=== PATIENT | male | born 1955 | race Caucasian/White ===

== ENCOUNTER → 2016-06-17 | Outpatient (CLI) | payer BC ==
[~2016-06-17] MED LIST: OXYC-57 PO
--- NOTE | 2016-06-17 10:55 | DIAGNOSTIC IMAGING REPORT ---
RIGHT SHOULDER MRI HISTORY: Right shoulder pain. TECHNIQUE: Multiplanar multisequence MRI of the right shoulder was performed without contrast. COMPARISON STUDY: Right shoulder 04/29/2016. FINDINGS: AC joint: Mild AC joint arthropathy demonstrated by joint space narrowing and subchondral marrow edema. Rotator cuff: The teres minor and infraspinatus tendons are intact. Some increased signal within the distal subscapularis tendon consistent with a mild tendinopathy/partial undersurface tear. Supraspinatus tendon also appears relatively intact.. Labrum: Slight abnormal configuration and increased T2 signal within the superior labrum. This may represent degeneration versus a small SLAP tear. Biceps tendon: Mild thickening and increased signal within the proximal long head of the biceps and in consistent with a mild tendinopathy. Bones: No acute fracture or dislocation of the glenohumeral joint. Cartilage: Intact Miscellaneous: No significant joint effusion. IMPRESSION: 1. Increased signal within the distal subscapularis tendon consistent with mild tendinopathy/partial undersurface tear. No evidence for full-thickness rotator cuff tear. 2. Mild tendinopathy involving the proximal long head of the biceps tendon. 3. Mild AC joint arthropathy with associated marrow edema at the distal clavicle and acromion. No fractures. 4. Abnormal signal and configuration within the superior labrum which may be due to mild degeneration versus a small SLAP tear. Electronically signed by: Norbert Riley M.D. 06/17/2016 10:54 AM Dictated Date/Time: 06/17/2016 10:41 AM
== END | disposition home or self-care (01) ==
LOC: C.MRI 09:39
PROVIDERS: ATTEND Family Medicine
DX: M25.511 Pain in right shoulder (principal); S46.819A Strain of other muscles, fascia and tendons at shoulder and upper arm level, unspecified arm, initial encounter; X58.XXXA Exposure to other specified factors, initial encounter

== ENCOUNTER → 2016-07-31 | Day surgery (SDC) | payer BC ==
[2016-07-11 13:07] VITALS: Ht 175.3 cm; Wt 91.8 kg
[~2016-07-31] VITALS: Ht 175.3 cm; Wt 91.8 kg
[~2016-07-31] MED LIST changes: +ATROPINE SULFATE 0.1 MG/ML 5ML SYR IV PRN; +BUPIVACAINE 0.5 % 5 MG/1 ML MPF 30ML VIAL ONE; +CLINDAMYCIN PHOS 150 MG/ML 2 ML VIAL IV SCH; +DEXAMETHASONE SOD INJ 4 MG/ML VIAL IV PRN; +DEXAMETHASONE SOD INJ 4 MG/ML VIAL ONE; +EpHEDrine SULFATE 50MG/5ML SYR ONE; +EpHEDrine SULFATE INJ 50 MG/ML AMP IV PRN; +FENTANYL CITRATE INJ 50 MCG/1 ML 2 ML VIAL IV PRN; +FENTANYL CITRATE INJ 50 MCG/1 ML 2 ML VIAL ONE; +GLYCOPYRROLATE INJ 0.2 MG/ML VIAL ONE; +KETOROLAC TROMETHAMINE 30 MG/ML VIAL IV. PRN; +LABETALOL HCL IV 5 MG/ML 20ML IV PRN; +LACTATED RINGER'S 1000ML 1,000 ML IV SCH; +LIDOCAINE HCL 1% MPF 2 ML VIAL ONE; +LIDOCAINE HCL 2% 2 ML VIAL (20MG/ML) ONE; +LIDOCAINE/EPINEPHRINE 1% INJ 50 ML VIAL ONE; +METOCLOPRAMIDE HCL INJ 5 MG/ML 2 ML VIAL IV PRN; +MIDAZOLAM HCL 1 MG/ML 2ML VIAL ONE; +MoRPHine SULFATE 10 MG/ML CARP/VIAL IV PRN; +MoRPHine SULFATE 2 MG/ML CARP IV PRN; +MoRPHine SULFATE 4 MG/ML 1 ML CARP\\VIAL IV PRN; +NEOSTIGMINE METHYLSULFATE 5 MG/5 ML SYR ONE; +ONDANSETRON INJ 2 MG/ML 2 ML VIAL IV PRN; +ONDANSETRON INJ 2 MG/ML 2 ML VIAL ONE; +OXYCODONE/ACETAMINOPHEN 5-325 TAB PO PRN; +PHENYLEPHRINE 100MCG/ML 5ML SYR IV PRN; +PROPOFOL IV EMULSION 10 MG/ML 20 ML VIAL IV ONE; +ROCURONIUM BROMIDE 10 MG/ML 5 ML VIAL ONE; +ROPIVACAINE 0.5% 5 MG/ML 30 ML VIAL ONE; +SODIUM CHLORIDE 0.9% 1000ML 1,000 ML IV SCH
--- NOTE | 2016-07-31 06:49 | History & Physical Bridge Note ---
H&P Re-Evaluation Bridge Note: I have examined the patient, reviewed the History & Physical and in the interval since the performance of the History & Physical I have noted the following changes of clinical significance: No changes noted
--- NOTE | 2016-07-31 09:49 | [facility] Post Operative Brief Note ---
Immediate Operative Summary Operative Date Jul 31, 2016. Pre-Operative Diagnosis Right Shoulder Impingement Post-Operative Diagnosis Same Procedure(s) Performed Right Shoulder Arthroscopy, Subacromial Decompression Surgeon Dr Calvert Clock And Watch Assembler Surgeon(s) Migdalia Pope PA-C Estimated Blood Loss Trace Findings partial supraspinatus tear, bursitis Specimens None Anesthesia LMA, block Complication(s) None Disposition Recovery Room / PACU
--- NOTE | 2016-07-31 09:59 | Discharge Instructions-SurgCtr ---
Discharge Instructions Date of Service Jul 31, 2016. Visit Reason for Visit: Right Shoulder Impingement Discharge Discharge Diagnosis / Problem: right shoulder impingement Discharge Goals Goal(s): Decrease discomfort, Improve function, Increase independence Medications Stopped Medications Name(s): advil stopped last thursday07/23/16 Activity Recommendations Activity Limitations: per Instructions/Follow-up section Anesthesia . Post Anesthesia Instructions: If you have had General Anesthesia or IV Sedation: * Do not drive today. * Resume driving when surgeon permits. * Do not make important decisions or sign legal documents today. * Call surgeon for: 1. Temperature elevations greater than 101 degrees F. 2. Uncontrollable pain. 3. Excessive bleeding. 4. Persistent nausea and vomiting. 5. Medication intolerance (nausea, vomiting or rash). * For nausea and vomiting use only clear liquids such as: tea, soda, bouillon until nausea subsides, then gradually increase diet as tolerated. * If you have any concerns or questions, call your surgeon's office. If physician is unavailable and it is an emergency, call 911 or go to the nearest emergency room. . Instructions / Follow-Up Instructions / Follow-Up The following are instructions to follow after "Shoulder Surgery" including, Acromioplasty, Rotator Cuff Repair and Instability Surgery ACTIVITY RECOMMENDATIONS: * Minimize activity after surgery. * No excessive walking, jogging, sports or laboring. * Return to activity is individualized depending on the patient and type of surgery. * Driving is not permitted until at least your first post operative visit. Please ask your doctor when it is safe to resume driving. * Expect increased discomfort with increased activity. Continue to ice the shoulder as needed. SCHOOL/WORK RECOMMENDATIONS: * You may return to sedentary work or school when you are feeling more comfortable. This is usually 3-7 days after surgery. MEDICATIONS: * You will have a prescription for pain medication and an anti-inflammatory medication after surgery. * Use the pain medication for severe pain and the anti-inflammatory for less severe pain. Once the pain medication has run out, try to use the anti-inflammatory medication. If this is not effective, contact the office for assistance. * The pain medication may cause nausea, constipation and drowsiness. You should see how they affect you before driving or similar activity. * The anti-inflammatory medication may cause stomach upset and bleeding. If this occurs let your doctor know immediately . * Take a stool softener like Colace or a laxative like Senokot to prevent constipation. DIET: * Resume previous diet. SPECIAL CARE: ICE: You have the option of an ice cooler, gel packs or ice bags. * If you have an ice cooler, refer to the instructions for that device. The ice cooler may be used continuously. * If you do not have an ice cooler, you will need to use ice bags or gel packs. Do not apply ice directly to the skin. Use a thin dressing or josephine shirt between the skin and ice bag. Apply ice for 20-30 minutes and repeat every 2-4 hours. This is especially important for the first 7-10 days after surgery. Once the pain improves, use ice as needed. ELEVATION: * You may be more comfortable sleeping in an upright position. Use the sling to elevate your arm. DRESSING: * Your dressing will be changed at your first therapy appointment approximately 4-5 days after surgery. Band-aids, tape strips or gauze may be applied. You may then change your dressing daily. * Reapply dressing followed by the EBIce cooling pad (if chosen) and then the sling. * Always wash your hands prior to touching the incision area. * Once the stitches are removed, you may leave the wound open to air or cover with gauze. * Expect some bloody drainage for the first few days after surgery. * Leave the tape strips, if present, in place for 5-7 days. * Band-aids and gauze may be changed daily. * There may be a gauze pad in your armpit area. This can be changed daily or replaced by a dry washcloth. SLING/BRACE: * You will need to use a sling or brace after surgery. The length of time the sling is used is dependent upon the type of surgery performed. * Arthroscopic Acromioplasty requires use of the sling for 2-4 weeks for comfort. * Labral procedures and Rotator Cuff Repairs require use of the sling for a longer period of time. Please check with your doctor prior to discontinuing the sling. BATHING: * You may shower or sponge-bathe immediately after surgery. The post operative shoulder dressing is mostly water-tight. You may shower right over this dressing, but be reasonably careful not to get the gauze or incision wet. * Once the dressing has been changed on the fourth or fifth day after surgery, you may shower and get the incision wet. * Wash with regular soap and water. * Do not bathe (submerge the incision), soak, swim or use a hot tub until the incision is completely healed over with normal skin and the doctor has given the OK to proceed. * There is no need to apply any ointments, powders or salves to your incision. * Do not apply alcohol or hydrogen peroxide directly to the incision. * Diluted peroxide (50:50 mixture with sterile saline) may be used to clean dried blood from around the incision area. THERAPY: * You will begin therapy four or five days after surgery. * Organized therapy with the therapist is important for the first 2-4 months after surgery depending on the type of procedure. During that time you will attend therapy 1-3 times per week. * You will also need to do daily exercises for range of motion and strength as instructed. * Patients who have a Capsular Shift Procedure will need to abide by temporary range of motion limitations. * Patients having Rotator Cuff Surgery are not allowed to actively lift their arms until 4-6 weeks after surgery. * Please check with your doctor regarding appropriate motion restrictions. FOLLOW UP VISIT: * If not already scheduled, please call the office at to schedule a follow-up appointment for 10 days after surgery and monthly thereafter. Diet Recommendations Home Diet: no limitations, resume previous diet Procedures Procedures Performed: Right Shoulder Arthroscopy, Subacromial Decompression Pending Studies Studies pending at discharge: no Medical Emergencies . Who to Call and When: Medical Emergencies: If at any time you feel your situation is an emergency, please call 911 immediately. . Non-Emergent Contact Non-Emergency issues call your: Surgeon Call Non-Emergent contact if: temperature is above 101.5, your pain is worsening, your pain is concerning you, wound has increased drainage . . "Provider Documentation" section prepared by Brianna Ellis.
--- NOTE | 2016-07-31 10:04 | [facility] Operative Report ---
Operative Report Operative Date Jul 31, 2016. Pre-Operative Diagnosis Right Shoulder Impingement Post-Operative Diagnosis Right shoulder impingment Procedure(s) Performed Right shoulder arthroscopy, subacromial decompression, debridement Surgeon Dr Calvert Curtain Mender Surgeon(s) Migdalia Pope PA-C Estimated Blood Loss Trace Findings impingement, partial RTC tear Specimens None Anesthesia LMA, block Complication(s) None Disposition Recovery Room / PACU Indications Patient is a 60 year old male who presented to our office with complaints of worsening right shoulder pain, failed conservative treatment. X-rays/MRI obtained, found to have evidence of impingement syndrome and partial thickness RTC tear. Surgical intervention discussed. Risks/complications discussed, informed consent obtained. Description of Procedure Patient was taken to the operating room, given IV Clindamycin for surgical prophylaxis. Time out performed, prepped and draped in routine sterile fashion. I was present the entire case, please see Dr. Calvert's operative report for further detail. Patient was awakened and taken to the recovery room in stable condition. I attest to the content of the Intraoperative Record and any orders documented therein. Any exceptions are noted below.
[2016-07-31 10:59] VITALS: TEMP 36.7
--- NOTE | 2016-07-31 11:09 | Anesthesia Progress Nt - [facility] ---
Anesthesia Post Op Note Date & Time Jul 31, 2016 at 11:05 Vital Signs Pain Intensity: 0 Vital Signs Past 12 Hours Date Time Temp Pulse Resp B/P Pulse Ox O2 Delivery O2 Flow Rate FiO2 07/31/16 10:51 69 10 96 07/31/16 10:51 68 10 07/31/16 10:50 128/66 07/31/16 10:47 68 12 07/31/16 10:47 66 12 90 07/31/16 10:45 126/68 07/31/16 10:42 70 20 91 07/31/16 10:42 72 20 07/31/16 10:40 126/71 07/31/16 10:37 69 14 95 07/31/16 10:37 69 14 07/31/16 10:36 65 9 07/31/16 10:36 66 9 95 07/31/16 10:35 129/69 07/31/16 10:35 36.4 67 13 129/69 94 Room Air 07/31/16 10:31 65 12 93 07/31/16 10:31 65 12 07/31/16 10:30 132/77 07/31/16 10:26 72 16 07/31/16 10:26 72 16 96 07/31/16 10:25 124/76 07/31/16 10:21 61 14 98 07/31/16 10:21 62 14 07/31/16 10:20 131/68 07/31/16 10:16 66 17 07/31/16 10:16 66 17 94 07/31/16 10:15 123/69 07/31/16 10:11 57 18 98 07/31/16 10:11 58 18 07/31/16 10:10 119/69 07/31/16 10:06 65 19 07/31/16 10:06 65 19 100 07/31/16 10:05 131/67 07/31/16 10:01 52 9 07/31/16 10:01 52 9 100 07/31/16 10:00 126/70 07/31/16 09:58 36.2 60 16 127/70 98 Room Air 07/31/16 09:58 127/70 07/31/16 07:41 68 18 98 07/31/16 07:41 68 18 07/31/16 07:40 66 8 07/31/16 07:40 66 8 125/76 97 07/31/16 07:35 79 12 143/85 07/31/16 07:35 79 12 07/31/16 07:32 144/93 07/31/16 06:33 150/99 07/31/16 06:33 36.6 79 16 150/99 98 Room Air Notes Mental Status: alert / awake / arousable, participated in evaluation Pt Amnestic to Procedure: Yes Nausea / Vomiting: adequately controlled Pain: adequately controlled Airway Patency, RR, SpO2: stable & adequate BP & HR: stable & adequate Hydration State: stable & adequate Anesthetic Complications: no major complications apparent Pt having some R upper lateral chest/shoulder tightness. No pain, not really SOB. He points to the area of the white adhesive dressing. Lungs sound clear, somewhat decreased on the R. Satting low-mid 90s on RA. It's unclear if this is from the dressing or if it's from the phrenic nerve palsy associated w/ the interscalene nerve block. He says it doesn't really bother him. I told him for the rest of the day to sleep sitting up if he naps. I told him to come to the ED if it worsens or if he becomes SOB.
--- NOTE | 2016-07-31 11:24 | OPERATIVE REPORT ---
DATE OF OPERATION: 07/31/2016 PREOPERATIVE DIAGNOSIS: Right shoulder impingement syndrome. POSTOPERATIVE DIAGNOSIS: Impingement syndrome, subacromial bursitis, partial thickness tear of the upper border subscapularis and anterior aspect of the supraspinatus, neither of which were significant enough for repair. PROCEDURE: Right shoulder arthroscopy with debridement of a partial thickness supraspinatus and subscapularis rotator cuff tendon tears, arthroscopic bursectomy and subacromial decompression. SURGEON: Dr. Calvert. REFRIGERATOR CRATER: Dr. Aniket Tijerina, fellow. SECOND REFRIGERATOR CRATER: Brianna Ellis PA-C. ANESTHESIA: LMA with block. INDICATIONS OF PROCEDURE: The patient is a 60-year-old male with right shoulder pain refractory to nonsurgical methods of management including therapy and injections. He wishes to proceed with operative intervention. He does not have any clinical AC joint pathology. His examination and MRI findings are consistent with impingement and rotator cuff tendonitis. PROCEDURE IN DETAIL: Informed consent was obtained. The patient identified as Rafa Mendoza. He identified the operative site as the right shoulder. I marked it with my initials. A preop surgical time out was performed. A preop dose of IV antibiotics was given. He was taken to the operating room, positioned supine on the operating room table. The anesthetic was administered along with the interscalene block. He was examined under anesthesia and found to have full and equal range of motion. He was positioned beach chair with neck held in neutral alignment. The Sorrel body positioner and Trimano arm holders were utilized. The heels were padded. The knees were flexed. The torso was secured to the table. Padding was applied to the mastoid processes. The right upper extremity was prepped and draped in usual sterile fashion. Foot pumps intraoperatively for DVT prophylaxis and postoperatively. He does not require any formal DVT prophylaxis. Prior to start of procedure, 1% lidocaine with epinephrine was injected into the fat pad under the AC joint, portal sites and subacromial space. Routine prep and drape was performed. A posterior soft spot viewing portal was established followed by an anterior mid glenoid working portal. There was some mild synovitis throughout the shoulder, particularly on the undersurface of the rotator cuff. There was fraying of the superior labrum consistent with a type 1 SLAP lesion and these were debrided. The rotator interval was normal. The labrum was intact circumferentially, perhaps a little bit lax superiorly. The biceps tendon was normal and was also pulled into the joint. There was no evidence of tearing or tenosynovitis. The articular surfaces were normal with some mottling and fraying posterior on the head. There were no loose bodies. The scope was placed anterior to visualize the posterior structures. The capsule and labrum were intact. There was a normal bare area. Axillary pouch was unremarkable. The posterior cuff was intact. There was some fraying at the leading edge of the supraspinatus. This was debrided. This mainly involved the crescent area. The cable was intact without notable tearing. There was about 2-4 mm of partial thickness undersurface tearing at the leading edge of the supraspinatus mostly in the crescent area about 7-10 mm in anterior to posterior width. There was also some minor fraying of the upper border of the subscapularis without any significant detachment. The rotator cuff involvement was minimal and did not require any repair. I did tag the supraspinatus area with a percutaneous PDS and identified this area in the subacromial space and found that it was perfectly normal. The scope was placed in the subacromial space. An accessory lateral portal was created. A thorough subacromial bursectomy was performed. There was significant subacromial bursitis. The bursal surface of the rotator cuff was completely normal. Downsloping of the anterior and lateral acromion were noted. The undersurface of the acromion was denuded of soft tissue using the cold cut and shaver. The anterior and lateral margins were defined. The coracoacromial ligament was released. A modified cutting block acromioplasty was performed removing about 4-5 mm of anterior bone beveling this from posterior to anterior and medial to lateral. The shaver was run through the shoulder to pickling tank operator loose debris. A good decompression was obtained. Portals were closed with 4-0 nylon, soft sterile dressing, ABD in the armpit and simple arm sling. The patient was awakened from anesthesia without difficulty and taken to recovery room in stable condition. There were no specimens or complications. Counts were correct at the end of case. Blood loss was minimal. At the conclusion of the operation, I spoke to patient's and informed her of my findings. Postoperative instructions were given. He will be rehabilitated according to the arthroscopic acromioplasty protocol. He can do early active range of motion of his shoulder. I attest to the content of the Intraoperative Record and any orders documented therein. Any exceptio ns are noted below.
[2016-07-31 11:35] VITALS: BP 146/77; PULSE 65; O2SAT 97
== END | disposition home or self-care (01) ==
LOC: X.SURG 06:24
PROVIDERS: ATTEND Physical Medicine & Rehabilitation Sports Medicine
DX: M75.41 Impingement syndrome of right shoulder (principal); M75.81 Other shoulder lesions, right shoulder; I10 Essential (primary) hypertension; D03.59 Melanoma in situ of other part of trunk

== ENCOUNTER → 2016-08-11 | Outpatient (CLI) | payer BC ==
[~2016-08-11] MED LIST changes: -ATROPINE SULFATE 0.1 MG/ML 5ML SYR IV PRN; -BUPIVACAINE 0.5 % 5 MG/1 ML MPF 30ML VIAL ONE; -CLINDAMYCIN PHOS 150 MG/ML 2 ML VIAL IV SCH; -DEXAMETHASONE SOD INJ 4 MG/ML VIAL IV PRN; -DEXAMETHASONE SOD INJ 4 MG/ML VIAL ONE; -EpHEDrine SULFATE 50MG/5ML SYR ONE; -EpHEDrine SULFATE INJ 50 MG/ML AMP IV PRN; -FENTANYL CITRATE INJ 50 MCG/1 ML 2 ML VIAL IV PRN; -FENTANYL CITRATE INJ 50 MCG/1 ML 2 ML VIAL ONE; -GLYCOPYRROLATE INJ 0.2 MG/ML VIAL ONE; -KETOROLAC TROMETHAMINE 30 MG/ML VIAL IV. PRN; -LABETALOL HCL IV 5 MG/ML 20ML IV PRN; -LACTATED RINGER'S 1000ML 1,000 ML IV SCH; -LIDOCAINE HCL 1% MPF 2 ML VIAL ONE; -LIDOCAINE HCL 2% 2 ML VIAL (20MG/ML) ONE; -LIDOCAINE/EPINEPHRINE 1% INJ 50 ML VIAL ONE; -METOCLOPRAMIDE HCL INJ 5 MG/ML 2 ML VIAL IV PRN; -MIDAZOLAM HCL 1 MG/ML 2ML VIAL ONE; -MoRPHine SULFATE 10 MG/ML CARP/VIAL IV PRN; -MoRPHine SULFATE 2 MG/ML CARP IV PRN; -MoRPHine SULFATE 4 MG/ML 1 ML CARP\\VIAL IV PRN; -NEOSTIGMINE METHYLSULFATE 5 MG/5 ML SYR ONE; -ONDANSETRON INJ 2 MG/ML 2 ML VIAL IV PRN; -ONDANSETRON INJ 2 MG/ML 2 ML VIAL ONE; -OXYCODONE/ACETAMINOPHEN 5-325 TAB PO PRN; -PHENYLEPHRINE 100MCG/ML 5ML SYR IV PRN; -PROPOFOL IV EMULSION 10 MG/ML 20 ML VIAL IV ONE; -ROCURONIUM BROMIDE 10 MG/ML 5 ML VIAL ONE; -ROPIVACAINE 0.5% 5 MG/ML 30 ML VIAL ONE; -SODIUM CHLORIDE 0.9% 1000ML 1,000 ML IV SCH
== END | disposition home or self-care (01) ==
LOC: C.RDSM 13:12
PROVIDERS: ATTEND Physical Medicine & Rehabilitation Sports Medicine
DX: S46.819A Strain of other muscles, fascia and tendons at shoulder and upper arm level, unspecified arm, initial encounter (principal); X58.XXXA Exposure to other specified factors, initial encounter